=== PATIENT | female | born 1980 | race Caucasian/White ===

== ENCOUNTER → 2019-02-27 | Outpatient (CLI) | payer BC ==
[~2019-02-27] MED LIST: CLARITIN10 MG PO; LEVEMIR100 U/ML SC; NOVOLOG 100U100 U/M1 SC; PREVACID 15MG15 M1 PO; RELION VEN0.09 MG/Ac IH; TUSS PO; ZITHROMAX Z PA250 MG PO; ZOFRAN4 M1 PO
== END ==
LOC: BHSO 10:42
DX: F33.1 Major depressive disorder, recurrent, moderate (principal)

== ENCOUNTER 2019-09-18 20:05 | Emergency (ER) | payer BC ==
[~2019-09-18] VITALS: Ht 167.6 cm; Wt 113.6 kg
[2019-09-18] MEDS ORDERED: ZOFRAN ODT4 MG PO (22:16)
[2019-09-18 23:30] VITALS: BP 117/72; PULSE 97; TEMP 98.6
== END 2019-09-18 23:45 | disposition home or self-care (01) ==
LOC: COL.ER 20:05
DX: J09.X2 Influenza due to identified novel influenza A virus with other respiratory manifestations (principal); R11.2 Nausea with vomiting, unspecified; Z88.2 Allergy status to sulfonamides
CPT/HCPCS: J1885; J2405; J2550; J7030

== ENCOUNTER → 2020-05-16 | Outpatient (CLI) | payer BC ==
[~2020-05-16] MED LIST changes: +ZOFRAN ODT4 MG PO
== END ==
LOC: COL.PUL 11:22
DX: J45.21 Mild intermittent asthma with (acute) exacerbation (principal)

== ENCOUNTER → 2024-01-04 | Outpatient (CLI) | payer BC | LOC: MC.RAD 08:48 | DX: Z12.31 Encounter for screening mammogram for malignant neoplasm of breast (principal); N64.89 Other specified disorders of breast ==

== ENCOUNTER → 2024-01-07 | Outpatient (CLI) | payer BC | LOC: MC.RAD 12:30 | DX: N63.11 Unspecified lump in the right breast, upper outer quadrant (principal); R59.9 Enlarged lymph nodes, unspecified ==

== ENCOUNTER → 2024-02-02 | Day surgery (SDC) | payer BC ==
[~2024-02-02] VITALS: Ht 167.6 cm; Wt 102.2 kg
[~2024-02-02] MED LIST changes: +Metoclopramide 10 MG TAB PO SCH; +Midazolam 2 MG/2 ML VIAL IV ONE; +NS 1,000 ML IV SCH; +Topical Skin Adhesive 1 EACH (1 ML) TOP ONE
[2024-02-07 11:27] VITALS: BP 123/82; PULSE 110; TEMP 98.2
--- NOTE | 2024-02-07 11:32 | NUR ---
DUE TO DOWNTIME, DOCUMENTATION ON EMR COMPLETED POST-CARE BY CASE LLOYD RN; REFER TO SCANNED DOWNTIME PAPER DOCUMENTATION FOR FULL CARE DOCUMENTATION.
--- NOTE | 2024-02-07 13:16 | NUR ---
Due to downtime, documentation on EMAR completed post-care by Ai Young RN. refer to scanned downtime paper documentation for full care documentation.
== END ==
LOC: SDCO 13:00
DX: C50.411 Malignant neoplasm of upper-outer quadrant of right female breast (principal); C77.3 Secondary and unspecified malignant neoplasm of axilla and upper limb lymph nodes; E66.9 Obesity, unspecified; Z68.36 Body mass index [BMI] 36.0-36.9, adult; Z17.1 Estrogen receptor negative status [ER-]
CPT/HCPCS: C1788; J0665; J0690; J1644; J2250; J2704; J7030

== ENCOUNTER 2024-03-12 13:14 | Emergency (ER) | payer BC ==
[~2024-03-12] VITALS: Ht 167.6 cm; Wt 99.1 kg
[~2024-03-12 13:14] MED LIST changes: -Metoclopramide 10 MG TAB PO SCH; -Midazolam 2 MG/2 ML VIAL IV ONE; -NS 1,000 ML IV SCH; -Topical Skin Adhesive 1 EACH (1 ML) TOP ONE
[2024-03-12 13:25] VITALS: TEMP 98.4
[2024-03-12] MEDS ORDERED: dexAMETHasone 10 MG/ML VIAL IV ONE (13:30)
[2024-03-12] MEDS ORDERED: LR 1,000 ML IV ONE (13:30)
[2024-03-12] MEDS ORDERED: Ketorolac 15 MG/ML VIAL IV ONE (13:30)
[2024-03-12] MEDS ORDERED: NS 1,000 ML IV ONE (13:45)
[2024-03-12 14:14] LABS: HEMOGLOBIN 12.1 g/dl (12.5-16.0); MEAN CELL VOLUME 84 fl (80.0-100.0); MEAN CORPUSCULAR HEMOGLOBIN 29 pg (27-31); MEAN CORPUSCULAR HGB CONC 34 g/dl (33.0-37.0); MEAN PLATELET VOLUME 10.5 fl (7.4-10.4); PLATELET COUNT 156 K/mm3 (130-400); RED BLOOD COUNT 4.25 M/mm3 (4.10-5.30); REDCELL DISTRIBUTION WIDTH-CV 13.7 % (11.5-14.5)
[2024-03-12 14:19] LABS: HEMATOCRIT 35.8 % (37.0-47.0)
[2024-03-12 14:36] LABS: ALBUMIN 3.3 g/dL (3.5-5.0); BILIRUBIN,TOTAL 0.2 mg/dL (0.2-1.2); CREATININE, serum 0.77 mg/dL (0.57-1.11); POTASSIUM 3.7 mEq/L (3.5-4.5)
[2024-03-12 15:19] LABS: BAND 5 % (0-10); BASOPHIL 1 % (0-2); LYMPHOCYTE 62 % (20.0-51.0); METAMYELOCYTE 1 % (0-0); MICROCYTOSIS 1+; NEUTROPHILS 21 % (42.0-75.2); PLATELET ESTIMATE NORMAL (NORMAL)
[2024-03-12 15:25] LABS: PH 5.5 (5.0-8.5); URINE APPEARANCE CLEAR (CLEAR/HAZY); URINE BLOOD NEGATIVE (NEGATIVE); URINE COLOR YELLOW (YELLOW); URINE GLUCOSE 1+ (NEGATIVE); URINE KETONE NEGATIVE (NEGATIVE); URINE NITRATE NEGATIVE (NEGATIVE); URINE PROTEIN(semi-quant) NEGATIVE (NEGATIVE); URINE UROBILINOGEN 0.2 E.U/dL (0.2-1.0)
[2024-03-12 15:42] LABS: COLLECTION METHOD CLEAN CATCH
[2024-03-12 16:00] VITALS: BP 116/79; PULSE 96
== END 2024-03-12 16:01 | disposition home or self-care (01) ==
LOC: COL.ER 13:14
PROVIDERS: Physician Assistant
DX: K52.1 Toxic gastroenteritis and colitis (principal); T45.1X5A Adverse effect of antineoplastic and immunosuppressive drugs, initial encounter; C50.911 Malignant neoplasm of unspecified site of right female breast
CPT/HCPCS: J7030

== ENCOUNTER 2024-04-23 20:56 | Emergency (ER) | payer BC ==
[~2024-04-23] VITALS: Ht 167.6 cm; Wt 97.7 kg
[2024-04-23 21:01] VITALS: TEMP 98.4
[2024-04-23] MEDS ORDERED: Ondansetron 4 MG/2 ML VIAL IV ONE (21:15)
[2024-04-23] MEDS ORDERED: LR 1,000 ML IV ONE ×2 (21:15→22:15)
[2024-04-23 21:23] LABS: HEMATOCRIT 39.4 % (37.0-47.0); HEMOGLOBIN 13.3 g/dl (12.5-16.0); MEAN CELL VOLUME 88 fl (80.0-100.0); MEAN CORPUSCULAR HEMOGLOBIN 30 pg (27-31); MEAN CORPUSCULAR HGB CONC 34 g/dl (33.0-37.0); MEAN PLATELET VOLUME 10.4 fl (7.4-10.4); PLATELET COUNT 180 K/mm3 (130-400); RED BLOOD COUNT 4.46 M/mm3 (4.10-5.30); REDCELL DISTRIBUTION WIDTH-CV 16.3 % (11.5-14.5)
[2024-04-23] MEDS ORDERED: diphenhydrAMINE 50 MG/ML 1 ML VIAL IV ONE (21:30)
[2024-04-23 21:46] LABS: ALBUMIN 3.8 g/dL (3.5-5.0); BILIRUBIN,TOTAL 0.4 mg/dL (0.2-1.2); CALCIUM 9.4 mg/dL (8.4-10.2); CREATININE, serum 0.92 mg/dL (0.57-1.11); POTASSIUM 3.5 mEq/L (3.5-4.5); TOTAL PROTEIN 6.4 g/dl (6.2-8.1)
[2024-04-23] MEDS ORDERED: cefTRIAXone 2 G in Water For Injection,Sterile 20 ML IV ONE (22:45)
[2024-04-23 22:47] LABS: COLLECTION METHOD CLEAN CATCH
[2024-04-23 22:54] LABS: PH 5.5 (5.0-8.5); URINE APPEARANCE CLEAR (CLEAR/HAZY); URINE BLOOD TRACE (NEGATIVE); URINE COLOR YELLOW (YELLOW); URINE GLUCOSE 3+ (NEGATIVE); URINE KETONE 1+ (NEGATIVE); URINE NITRATE NEGATIVE (NEGATIVE); URINE PROTEIN(semi-quant) NEGATIVE (NEGATIVE)
[2024-04-23] MEDS ORDERED: CEPHALEXIN500 M1 PO (22:56)
[2024-04-23 23:14] VITALS: BP 109/76; PULSE 64
[2024-04-23 23:56] LABS: ANISOCYTOSIS 1+; BAND 4 % (0-10); LYMPHOCYTE 62 % (20.0-51.0); NEUTROPHILS 20 % (42.0-75.2); PLATELET ESTIMATE NORMAL (NORMAL)
== END 2024-04-23 23:33 | disposition home or self-care (01) ==
LOC: COL.ER 20:56
PROVIDERS: Emergency Medicine
DX: R11.2 Nausea with vomiting, unspecified (principal); E86.0 Dehydration; N39.0 Urinary tract infection, site not specified; Z88.2 Allergy status to sulfonamides
CPT/HCPCS: J0696; J1200; J2405; J2765; J7120

== ENCOUNTER 2024-05-13 21:03 | Emergency (ER) | payer BC ==
[~2024-05-13] VITALS: Ht 167.6 cm; Wt 101.4 kg
[~2024-05-13 21:03] MED LIST changes: +CEPHALEXIN500 M1 PO
[2024-05-13 21:11] VITALS: TEMP 97.7
[2024-05-13] MEDS ORDERED: NS 1,000 ML IV ONE ×2 (21:30→23:00)
[2024-05-13] MEDS ORDERED: diphenhydrAMINE 50 MG/ML 1 ML VIAL IV ONE (21:30)
[2024-05-13 22:20] LABS: HEMATOCRIT 37.7 % (37.0-47.0); HEMOGLOBIN 12.8 g/dl (12.5-16.0); MEAN CELL VOLUME 88 fl (80.0-100.0); MEAN CORPUSCULAR HEMOGLOBIN 30 pg (27-31); MEAN CORPUSCULAR HGB CONC 34 g/dl (33.0-37.0); MEAN PLATELET VOLUME 10.7 fl (7.4-10.4); PLATELET COUNT 168 K/mm3 (130-400); REDCELL DISTRIBUTION WIDTH-CV 16.9 % (11.5-14.5)
[2024-05-13 22:34] LABS: ALANINE AMINOTRANSFERASE 50 U/L (0-55); ALBUMIN 3.8 g/dL (3.5-5.0); ALKALINE PHOSPHATASE 78 U/L (40-150); ANION GAP 14 mmol/L (7-16); AST,SGOT 25 U/L (5-34); BLOOD UREA NITROGEN 14 mg/dL (7-19); CALCIUM 9.6 mg/dL (8.4-10.2); CHLORIDE 100 mEq/L (98-107); CREATININE, serum 0.87 mg/dL (0.57-1.11); GLUCOSE 372 mg/dL (70-99); POTASSIUM 3.7 mEq/L (3.5-4.5); SODIUM 134 mEq/L (136-145); TOTAL PROTEIN 6.5 g/dl (6.2-8.1)
[2024-05-13 22:43] LABS: ACETONE,SERUM NEGATIVE
[2024-05-13 22:50] LABS: BILIRUBIN,TOTAL 0.8 mg/dL (0.2-1.2)
[2024-05-13 23:00] LABS: ANISOCYTOSIS 1+; BAND 2 % (0-10); LYMPHOCYTE 18 % (20.0-51.0); NEUTROPHILS 77 % (42.0-75.2); PLATELET ESTIMATE NORMAL (NORMAL)
[2024-05-13 23:58] LABS: COLLECTION METHOD CLEAN CATCH
[2024-05-14 00:05] VITALS: BP 122/71; PULSE 93
[2024-05-14 00:26] LABS: PH 5.5 (5.0-8.5); URINE APPEARANCE CLEAR (CLEAR/HAZY); URINE BLOOD NEGATIVE (NEGATIVE); URINE COLOR YELLOW (YELLOW); URINE GLUCOSE 3+ (NEGATIVE); URINE KETONE 3+ (NEGATIVE); URINE NITRATE NEGATIVE (NEGATIVE); URINE PROTEIN(semi-quant) NEGATIVE (NEGATIVE)
== END 2024-05-14 00:10 | disposition home or self-care (01) ==
LOC: COL.ER 21:03
PROVIDERS: Emergency Medicine
DX: R11.10 Vomiting, unspecified (principal); C50.911 Malignant neoplasm of unspecified site of right female breast
CPT/HCPCS: J0780; J1200; J7030

== ENCOUNTER → 2024-05-23 | Outpatient (CLI) | payer BC | LOC: COL.VAS 08:58 | DX: Z51.11 Encounter for antineoplastic chemotherapy (principal); C50.411 Malignant neoplasm of upper-outer quadrant of right female breast ==

== ENCOUNTER 2024-07-25 23:43 | Emergency (ER) | payer BC ==
[~2024-07-25] VITALS: Ht 167.6 cm; Wt 97.3 kg
[~2024-07-25 23:43] MED LIST changes: +00186-0372-20 IH; +ALBUTEROL0.83 MG/ML IH; +MAGNESIUM GLYC100 MG PO; +MASON NATURAL2000 IU PO; +NORCO 325 MG-51 TAB PO; +STRATTERA18 MG PO; +TRILEPTAL 300M300 MG PO; +TRULICITY0.75 MG/0. SQ; +VITAMIN B11000 MCG/M IM; +XANAX .25M0.25 MG/TA PO; +ZYRTEC 10MG10 MG PO
[2024-07-25 23:54] VITALS: TEMP 98.4
[2024-07-26] MEDS ORDERED: NS 1,000 ML IV ONE ×2 (00:45→03:00)
[2024-07-26 01:14] LABS: COLLECTION METHOD CLEAN CATCH
[2024-07-26 01:19] LABS: BASO % 0.1 % (0.0-2.0); GRAN % 84.5 % (42.2-75.2); HEMATOCRIT 40.8 % (37.0-47.0); LYMPH # 0.8 K/mm3 (1.2-3.4); LYMPH % 10.6 % (20.0-51.0); MEAN CELL VOLUME 87 fl (80.0-100.0); MEAN CORPUSCULAR HEMOGLOBIN 30 pg (27-31); MEAN CORPUSCULAR HGB CONC 34 g/dl (33.0-37.0); MEAN PLATELET VOLUME 10.2 fl (7.4-10.4); MONO # 0.3 K/mm3 (0.1-0.6); MONO % 4.5 % (1.7-9.3); PLATELET COUNT 207 K/mm3 (130-400); RED BLOOD COUNT 4.69 M/mm3 (4.10-5.30); REDCELL DISTRIBUTION WIDTH-CV 14.8 % (11.5-14.5)
[2024-07-26 01:23] LABS: PH 5.5 (5.0-8.5); URINE APPEARANCE CLEAR (CLEAR/HAZY); URINE BLOOD NEGATIVE (NEGATIVE); URINE COLOR YELLOW (YELLOW); URINE GLUCOSE 3+ (NEGATIVE); URINE KETONE TRACE (NEGATIVE); URINE NITRATE NEGATIVE (NEGATIVE); URINE PROTEIN(semi-quant) NEGATIVE (NEGATIVE); URINE UROBILINOGEN 0.2 E.U/dL (0.2-1.0)
[2024-07-26 01:35] LABS: ACETONE,SERUM NEGATIVE
[2024-07-26 01:38] LABS: ALANINE AMINOTRANSFERASE 21 U/L (0-55); ALBUMIN 3.5 g/dL (3.5-5.0); ALKALINE PHOSPHATASE 57 U/L (40-150); ANION GAP 14 mmol/L (7-16); AST,SGOT 16 U/L (5-34); BILIRUBIN,TOTAL 0.3 mg/dL (0.2-1.2); BLOOD UREA NITROGEN 15 mg/dL (7-19); CALCIUM 9.8 mg/dL (8.4-10.2); CHLORIDE 98 mEq/L (98-107); CREATININE, serum 1.06 mg/dL (0.57-1.11); LIPASE 40 U/L (8-78); POTASSIUM 4.9 mEq/L (3.5-4.5); SODIUM 134 mEq/L (136-145); TOTAL PROTEIN 6.8 g/dl (6.2-8.1)
[2024-07-26 01:46] LABS: TROPONIN-I 0.016 ng/mL (0.00-0.033)
[2024-07-26 01:49] LABS: GLUCOSE 610 mg/dL (70-99)
[2024-07-26] MEDS ORDERED: Insulin Regular Human (NovoLIN R/HumuLIN R) IV ONE (02:00)
[2024-07-26 03:57] VITALS: BP 130/59; PULSE 71
== END 2024-07-26 03:57 | disposition home or self-care (01) ==
LOC: COL.ER 23:43
PROVIDERS: Nurse Practitioner Primary Care
DX: E11.65 Type 2 diabetes mellitus with hyperglycemia (principal); C50.919 Malignant neoplasm of unspecified site of unspecified female breast
CPT/HCPCS: J1815; J7030